=== PATIENT | female | born 1960 | race African-American/Black ===

== ENCOUNTER 2016-09-19 13:13 | Emergency (ER) | payer OTHER ==
[2016-09-19 13:32] VITALS: BP 158/91; PULSE 86; TEMP 97.4; BMI 30.8
--- NOTE | 2016-09-19 14:02 | PDOC ---
History of Present Illness - General Chief Complaint: Pain Stated Complaint: LEFT HIP PAIN Time Seen by Provider: 09/19/16 14:02 History Source: Patient Exam Limitations: No Limitations - History of Present Illness Initial Comments: 09/19/16 14:30 CHIEF COMPLAINT: Left hip pain PCP: Dr. Maria Luz Chahal (Orthopedics) Dr. Youssef (Pain Management) HISTORY OF PRESENT ILLNESS: Patient is a 55-year-old female presented to the ED via EMS with the chief complaints of left hip pain since 3 days. A/c to the patient, she started having the pain suddenly, progressively getting worse, stabbing in quality, 15/ 10 in intensity, non radiating. 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 No h/o trauma to that area. Patient reports numbness/tingling in bilateral hands since few weeks. No h/o stroke like symptoms. Mentions that patient has had chronic back pain since the age of 11 years after she was paralysed s/p mechanical fall, had paralysis for 6months which resolved. Since then she has had severe back pain and is on muscle relaxants. Patient visits Dr. Youssef for pain management, gets fentanyl patch and IM meds (unsure of the name) Denies urinary symptoms like increased frequency, urgency, hesitancy or incontinence. No h/o fever, chills, rigors, sweating, headache, abdominal pain, nausea or vomiting. Patient was scheduled for right knee arthoscopy on Sep 14 but was cancelled. Bowel habit normal. Sleep/Appetite normal. Recent Travel: None PAST MEDICAL HISTORY: Hypertension, Diabetes, Hyperlipidemia, Osteoarthritis, Left Total knee replacement (twice) PAST SURGICAL HISTORY: As mentioned above Social History: Smoking: Denies Alcohol: Denies Drugs: Denies Family History:Unknown Allergies: NKDA Past History - Past Medical History Allergies/Adverse Reactions: Allergies Allergy/AdvReac Type Severity Reaction Status Date / Time No Known Allergies Allergy Verified 09/19/16 14:39 Home Medications: Ambulatory Orders Loratadine [Claritin 5mg/5mL Liquid] 5 mg PO DAILY 02/02/13 Metformin HCl [Glucophage -] 500 mg PO BID 02/02/13 Atorvastatin Ca [Lipitor] 20 mg PO HS 05/22/13 Baclofen [Lioresal -] 10 mg PO Q8H 05/22/13 Ibuprofen/Famotidine [Duexis 800-26.6 mg Tablet] 1 each PO TID 05/22/13 Tramadol HCl 50 mg PO PRN 05/22/13 Amlodipine/Valsartan [Exforge 5-160 mg Tablet] 1 tab PO DAILY 05/30/15 Desvenlafaxine Succinate [Pristiq] 50 mg PO DAILY 05/30/15 Diphenhydramine [Benadryl Capsule -] 50 mg PO DAILY 05/30/15 Furosemide [Lasix -] 40 mg PO DAILY 05/30/15 Gabapentin [Neurontin -] 400 mg PO TID 05/30/15 Lansoprazole [Prevacid -] 0 mg PO DAILY 05/30/15 Naproxen [EC-Naprosyn] 500 mg PO BID 05/30/15 Polyethylene Glycol 3350 [Miralax 119 gm Btl -] 17 gm PO DAILY 05/30/15 Prednisone [Deltasone -] 10 mg PO DAILY 05/30/15 Tiotropium [place] [Spiriva Respimat] 4 gm IH Q4H 05/30/15 Travoprost [Travatan Z] 1 drop IO DAILY 05/30/15 Zolpidem Tartrate [Ambien] 10 mg PO DAILY 05/30/15 Ibuprofen [Motrin -] 400 mg PO TID #10 tablet 09/19/16 Asthma: Yes Cardiac Disorders: Yes (HEART MURMUR) COPD: Yes Diabetes: Yes (NIDDM) GI Disorders: Yes (CONSTIPATION) HTN: Yes Hypercholesterolemia: Yes Thyroid Disease: Yes (HYPERACTIVE A CHILD) - Surgical History Orthopedic Surgery: Yes (TKR LEFT KNEE) - Psycho/Social/Smoking Cessation Hx Anxiety: No Suicidal Ideation: No Smoking Status: Yes Smoking History: Current every day smoker Have you smoked in the past 12 months: Yes Number of Cigarettes Smoked Daily: 20 Information on smoking cessation initiated: No 'Breaking Loose' booklet given: 01/22/15 Hx Alcohol Use: No Drug/Substance Use Hx: No Substance Use Type: Cocaine Hx Substance Use Treatment: (5 YEARS AGO) Review of Systems - Review of Systems Able to Perform ROS?: Yes Comments:: 09/19/16 17:40 CONSTITUTIONAL:~ Absent: fever, chills, diaphoresis, generalized weakness, malaise, loss of appetite HEENT:~ Absent: rhinorrhea, nasal congestion, throat pain, throat swelling, difficulty swallowing, mouth swelling, ear pain, eye pain, visual Changes CARDIOVASCULAR:~ Absent: chest pain, syncope, palpitations, irregular heart rate, lightheadedness , peripheral edema RESPIRATORY:~ Absent: cough, shortness of breath, dyspnea with exertion, orthopnea, wheezing, stridor, hemoptysis GASTROINTESTINAL: Absent: abdominal pain, abdominal distension, nausea, vomiting, diarrhea, constipation, melena, hematochezia GENITOURINARY:~ Absent: dysuria, frequency, urgency, hesitancy, hematuria, flank pain, genital pain MUSCULOSKELETAL: Present: Left hip pain Absent: myalgia, arthralgia, joint swelling SKIN:~ Absent: rash, itching, pallor HEMATOLOGIC/IMMUNOLOGIC:~ Absent: easy bleeding, easy bruising, lymphadenopathy, frequent infections ENDOCRINE: Absent: unexplained weight gain, unexplained weight loss, heat intolerance, cold intolerance NEUROLOGIC:~ Absent: headache, focal weakness or paresthesias, dizziness, unsteady gait, seizure, mental status changes, bladder or bowel incontinence PSYCHIATRIC:~ Absent: anxiety, depression, suicidal or homicidal ideation, hallucinations. Is the patient limited Uzbek proficient: No *Physical Exam - Vital Signs Last Vital Signs Temp Pulse Resp BP Pulse Ox 97.4 F L 86 18 158/91 100 09/19/16 13:24 09/19/16 13:24 09/19/16 13:24 09/19/16 13:24 09/19/16 13:24 - Physical Exam Comments: 09/19/16 17:41 PE: GENERAL: Awake, alert, and fully oriented, in no acute distress HEAD: No signs of trauma EYES: PERRLA, EOMI, sclera anicteric, conjunctiva clear ENT: Auricles normal inspection, hearing grossly normal, nares patent, oropharynx clear without exudates. Moist mucosa NECK: Normal ROM, supple, no lymphadenopathy, JVD, or masses LUNGS: Breath sounds equal, clear to auscultation bilaterally. No wheezes, and no crackles.. HEART: Regular rate and rhythm, normal S1 and S2, no murmurs, rubs or gallops ABDOMEN: Soft, nontender, normoactive bowel sounds. No guarding, no rebound. No masses EXTREMITIES: Normal range of motion but pain on movement, no edema. No clubbing or cyanosis. No cords, erythema. Back: Point tenderness on the lumbar/sacral area, left buttocks and paraspinal area on palpation. NEUROLOGICAL: Cranial nerves II through XII grossly intact. Normal speech, normal gait SKIN: Warm, Dry, normal turgor, no rashes or lesions noted. Medical Decision Making - Medical Decision Making 09/19/16 13:20 Patient seen and examined at bed side. Vitals noted, unremarkable. Patient looks like she is in a lot of pain. Will order Toradol 60mg im stat and X-ray of hip/pelvis and lumbar/sacral 09/19/16 14:30 Patient reassessed. Pain is decreasing. 09/19/16 17:00 Clinical Impression: Back pain most likely musculoskeltal origin X-ray reviewed, no acute pathology Patient's pain is reduced with Toradol. She is hemodynamically stable and can be discharged. Patient has been advised to return to the Emergency Department immediately if symptoms persist or if she develops NEW symptoms and to visit her primary doctor as soon as possible. Illness, Investigation and Plan of care explained to the patient. Case seen and discussed with Dr. Laird. *DC/Admit/Observation/Transfer Diagnosis at time of Disposition: Left hip pain - Discharge Dispostion Disposition: HOME Condition at time of disposition: Guarded Admit: No - Prescriptions Prescriptions: Ibuprofen [Motrin -] 400 mg PO TID #10 tablet - Referrals Referrals: Seb Braga [Primary Care Provider] - - Patient Instructions Printed Discharge Instructions: DI for Musculoskeletal Pain Additional Instructions: Your x-ray of hip/pelvis and lumbar/sacral looks normal, no acute pathology. Your hip pain is most likely musculoskeletal origin. If you have severe pain, please take motrin. Make sure you visit your primary doctor for further evaluation. If pain persists, you may need to do an MRI of the back. Return to the emergency department immediately with ANY new, persistent or worsening symptoms.
[2016-09-19] MEDS ORDERED: KETOROLAC TROMETHAMINE 60 MG/2 ML VIAL IM ONE ×2 (14:21→14:32)
[2016-09-19] MEDS ORDERED: KETOROLAC TROMETHAMINE 30 MG/1 ML VIAL IVPUSH ONE (14:23)
--- NOTE | 2016-09-19 14:32 | PDOC ---
Attending Attestation - Resident Resident Name: Fern Lyons - ED Attending Attestation I have performed the following: I have examined & evaluated the patient, The case was reviewed & discussed with the resident, I agree w/resident's findings & plan - HPI HPI: 09/19/16 14:27 55-year-old female with a past medical history of hypertension, AODM, hyperlipidemia, and awaiting Patient has a history of left hip TKR 2, status post a fall She is also scheduled for elective right knee surgery She has chronic back pain, for many years, and is being followed by pain management She is on baclofen, tramadol, and gabapentin for her chronic back pain Patient is now complaining of 3 days of left hip pain, after turning and lifting her She states that she pulled out her left hip and left buttock, and now it hurts for 3 days She did not fall or directly strike the area She denies any fevers or chills She denies any rashes She denies any direct injury to the area She denies any numbness or tingling in her leg, or weakness in her leg - Physicial Exam PE: 09/19/16 14:30 GENERAL: The patient is awake, alert, and fully oriented, and answering questions HEAD: Normal with no signs of trauma. HEART: Regular rate and rhythm, normal S1 and S2 without murmur, rub or gallop. ABDOMEN: Soft, nontender, normoactive bowel sounds. No guarding, no rebound. No masses appreciated. EXTREMITIES: There is some tenderness on the left gluteal muscles, which is worse with musculoskeletal maneuvers There is passive full range of motion of the hip with some mild tenderness Motor strength is equal in the lower extremities bilaterally Sensation is intact in the lower extremities There is full range of motion of the right hip SKIN: Warm, Dry, - Medical Decision Making 09/19/16 17:29 Musculoskeletal pain LS-spine series as read by me-MELANIE Left hip and pelvis series as read by me-NAD Patient feeling much better after Toradol Has medications from pain management
[2016-09-19] MEDS ORDERED: KETOROLAC TROMETHAMINE 60 MG/2 ML VIAL ONE (14:34)
[2016-09-19] MEDS ORDERED: IBUPROFEN 400 MG TABLET (FP) PO ONE ×2 (17:34→17:42)
== END 2016-09-19 17:52 | disposition home or self-care (01) ==
LOC: JER 13:13
PROC: 3E0233Z Introduction of Anti-inflammatory into Muscle, Percutaneous Approach (ICD-10-PCS; principal; 2016-09-19)
DX: M25.552 Pain in left hip (principal); M54.5 Low back pain; J45.909 Unspecified asthma, uncomplicated; I10 Essential (primary) hypertension; R01.1 Cardiac murmur, unspecified; E11.9 Type 2 diabetes mellitus without complications; Z79.84 Long term (current) use of oral hypoglycemic drugs; E78.00 Pure hypercholesterolemia, unspecified; M19.90 Unspecified osteoarthritis, unspecified site; F17.210 Nicotine dependence, cigarettes, uncomplicated
CPT/HCPCS: 72100-TC; 73523-TC; 96372; 99281-25

== ENCOUNTER 2017-11-02 12:57 | Emergency (ER) | payer OTHER ==
[2017-11-02 13:02] VITALS: BP 100/55; PULSE 82; TEMP 98.1; BMI 25.8
[2017-11-02] MEDS ORDERED: ERYTHROMYCIN 0.5% OPHTHALMIC OINTMENT 3.5 GM TUBE OS ONE (14:22)
[2017-11-02] MEDS ORDERED: TETRACAINE 0.5% HCL 0.6ML DROPPER.BOTTLE OD ONE (14:23)
[2017-11-02] MEDS ORDERED: FLUORESCEIN NA 1 EA STRIP OD ONE (14:24)
--- NOTE | 2017-11-02 14:36 | PDOC ---
History of Present Illness - General Chief Complaint: Foreign Body (FB) Stated Complaint: EYE INJURY Time Seen by Provider: 11/02/17 13:47 History Source: Patient Exam Limitations: No Limitations - History of Present Illness Initial Comments: 11/02/17 14:44 yesterday was coming up stairs when felt piece of debris blow into her right eye. States used a Q-tip with water, use Vaseline, to try to remove foreign body which she felt was extracted last night but woke up this morning with injected eyes some mild swelling and some drainage. States visual acuity is normal. Suffers from glaucoma but has not seen the scrap bunch maker for over 1 year. No fever, no pain to right eye. Occurred: reports: yesterday Severity: reports: mild, moderate Pain Location: reports: face Method of Injury: Yes: unknown Associated Symptoms (Fall): denies symptoms Past History - Travel Traveled outside of the country in the last 30 days: No Close contact w/someone who was outside of country & ill: No - Past Medical History Allergies/Adverse Reactions: Allergies Allergy/AdvReac Type Severity Reaction Status Date / Time No Known Allergies Allergy Verified 11/02/17 13:02 Home Medications: Ambulatory Orders metFORMIN HCL [Glucophage -] 500 mg PO BID 02/02/13 Tramadol HCl 50 mg PO PRN 05/22/13 Amlodipine/Valsartan [Exforge 5-160 mg Tablet] 1 tab PO DAILY 05/30/15 Desvenlafaxine Succinate [Pristiq] 50 mg PO DAILY 05/30/15 Gabapentin [Neurontin -] 400 mg PO TID 05/30/15 Lansoprazole [Prevacid -] 0 mg PO DAILY 05/30/15 Naproxen [EC-Naprosyn] 500 mg PO BID 05/30/15 Tiotropium [place] [Spiriva Respimat] 4 gm IH Q4H 05/30/15 Travoprost [Travatan Z] 1 drop IO DAILY 05/30/15 Zolpidem Tartrate [Ambien] 10 mg PO DAILY 05/30/15 Erythromycin 0.5% Eye Ointment [Erythromycin 0.5% Eye Ointment -] 1 applic OD TID #1 tube 11/02/17 Asthma: Yes Cardiac Disorders: Yes (HEART MURMUR) CVA: Yes COPD: Yes Diabetes: Yes (NIDDM) GI Disorders: Yes (CONSTIPATION) HTN: Yes Hypercholesterolemia: Yes Thyroid Disease: Yes (HYPERACTIVE A CHILD) - Surgical History Orthopedic Surgery: Yes (TKR LEFT KNEE) - Immunization History Immunization Up to Date: Yes - Suicide/Smoking/Psychosocial Hx Smoking Status: Yes Smoking History: Never smoked Have you smoked in the past 12 months: Yes Number of Cigarettes Smoked Daily: 20 Information on smoking cessation initiated: No 'Breaking Loose' booklet given: 01/22/15 Hx Alcohol Use: No Drug/Substance Use Hx: No Substance Use Type: None Hx Substance Use Treatment: (5 YEARS AGO) Review of Systems - Review of Systems Able to Perform ROS?: Yes Is the patient limited Macedonian proficient: Yes Constitutional: Yes: See HPI. No: Symptoms Reported, Fever, Malaise HEENTM: Yes: Symptoms Reported, See HPI, Eye Pain, Tearing. No: Double Vision Respiratory: No: Symptoms reported Musculoskeletal: Yes: See HPI. No: Symptoms Reported All Other Systems: Reviewed and Negative *Physical Exam - Vital Signs Last Vital Signs Temp Pulse Resp BP Pulse Ox 98.1 F 82 16 100/55 100 11/02/17 12:59 11/02/17 12:59 11/02/17 12:59 11/02/17 12:59 11/02/17 12:59 - Physical Exam General Appearance: Yes: Nourished, Appropriately Dressed, Apparent Distress, Mild Distress, Moderate Distress HEENT: positive: JEFFREY, Normal ENT Inspection, TMs Normal, Pharynx Normal, Other (injercted right conjuctivae- with tearing. - Fluourosceine stain = no FB/ Abrasion/ no pickup.) Neck: positive: Supple. negative: Tender, Lymphadenopathy (R), Lymphadenopathy (L) Respiratory/Chest: positive: Lungs Clear, Normal Breath Sounds Gastrointestinal/Abdominal: positive: Normal Bowel Sounds, Soft Integumentary: positive: Normal Color, Dry, Warm Neurologic: positive: reinforcement maker II-XII NML intact, Fully Oriented, Alert, Normal Mood/ Affect, Normal Response, Motor Strength 5/5 Progress Note - Progress Note Progress Note: chemical conjuctivitis - vs corneal abrasion - will treat with erythromycin ointment - f/u this week with Dr Saxena- Optho *DC/Admit/Observation/Transfer Diagnosis at time of Disposition: Corneal abrasion, right Qualifiers: Encounter type: initial encounter Qualified Code(s): S05.01XA - Injury of conjunctiva and corneal abrasion without foreign body, right eye, initial encounter - Discharge Dispostion Disposition: HOME Condition at time of disposition: Stable Admit: No - Prescriptions Prescriptions: Erythromycin 0.5% Eye Ointment [Erythromycin 0.5% Eye Ointment -] 1 applic OD TID #1 tube - Referrals Referrals: Seb Braga [Primary Care Provider] - Emiliano Saxena MD [Staff Physician] - - Patient Instructions Printed Discharge Instructions: DI for Corneal Abrasion Additional Instructions: Rest, avoid rubbing eyes Wash hands frequently as this is very contagious Wash hands, use eye drops as directed, wash hands after use Do not share eyedrops with other person to may become infected as this will infect them erythromycin ointment to right eye 3 times a day to affected eye 3 times a day for 5 days Avoid contact with others until redness and discharge is gone from eyes. Followup with ophthalmology or private physician this week - Post Discharge Activity Forms/Work/School Notes: Back to Work
== END 2017-11-02 14:58 | disposition home or self-care (01) ==
LOC: JERFT 12:57
DX: S05.01XA Injury of conjunctiva and corneal abrasion without foreign body, right eye, initial encounter (principal); X58.XXXA Exposure to other specified factors, initial encounter; Y93.89 Activity, other specified; Y92.9 Unspecified place or not applicable; R01.1 Cardiac murmur, unspecified; J44.9 Chronic obstructive pulmonary disease, unspecified; I10 Essential (primary) hypertension; E78.00 Pure hypercholesterolemia, unspecified; Z87.891 Personal history of nicotine dependence
CPT/HCPCS: 99281-25

== ENCOUNTER 2019-09-14 07:43 | Day surgery (SDC) | payer OTHER ==
[2019-08-30 16:04] VITALS: BMI 30.1
[2019-09-14] MEDS ORDERED: MIDAZOLAM HCL 2 MG/2 ML SINGLE DOSE VIAL ONE (11:36)
[2019-09-14] MEDS ORDERED: PROPOFOL 20 ML ONE (11:36)
[2019-09-14] MEDS ORDERED: LIDOCAINE HCL 1%, 10 MG/ML (50 mL VIAL) IJ ONE (11:44)
[2019-09-14] MEDS ORDERED: IOHEXOL 180 MG/1 ML ML IJ ONE (11:44)
[2019-09-14] MEDS ORDERED: BUPIVACAINE HCL/PF 0.25% (2.5MG/ML) 10 ML VIAL IJ ONE (11:44)
[2019-09-14] MEDS ORDERED: BUPIVACAINE HCL/PF 0.5% (5MG/ML) 10 ML VIAL IJ ONE (11:45)
[2019-09-14] MEDS ORDERED: BETAMET ACET/BETAMET NA PH 30 MG/5 ML VIAL IJ ONE (11:45)
[2019-09-14] MEDS ORDERED: oxyCODONE HCL 5 MG TABLET PO PRN ×2 (12:34)
[2019-09-14] MEDS ORDERED: ONDANSETRON 4 MG/2 ML VIAL IVPUSH PRN (12:34)
[2019-09-14] MEDS ORDERED: LACTATED RINGERS SOLUTION 1,000 ML IV SCH (12:45)
[2019-09-14 12:52] VITALS: TEMP 97.6
[2019-09-14 13:22] VITALS: BP 141/92; PULSE 80
--- NOTE | 2019-09-16 21:15 | PROC ---
Procedure Note Procedure: Date of service: 09/14/2019 Preoperative Diagnosis: Low back pain and lumbar radiculopathy on Left Postoperative Diagnosis: Same Procedure Performed: Lumbar Epidural Steroid Injection (LESI) on Left L4-5 with dye under Fluoroscopy Anesthesia: Local / MAC Anesthesiologist: Procedure: I discussed with the patient in detail about the risks, benefits, and alternatives to treatment not only limited to infection, headache, numbness, weakness, and injury to nerves, blood vessels and muscles. The patient understood, agreed and signed the written consent. The patient was placed in the prone position with the head, abdomen and legs supported with the pillows. The lumbosacral area was prepped and draped with Betadine times three in a sterile fashion. Lumbar vertebrae were identified under the C-arm. At L4-5 level on the Left side, 3 ml of 1 % Lidocaine was infiltrated into the skin and subcutaneous tissue. A 3 inch, #20 gauge Tuohy needle was advanced to the epidural space with loss of resistance technique under fluoroscopic guidance. Aspiration was negative for cerebrospinal fluid and blood. 2ml of Omnipaque (radio-opaque dye) was injected to confirm the tip of the needle into epidural space and spread of dye. There was no CSF or vascular spread. The spread of dye was noted cranially and caudally on epidurogram. Aspiration was done again which was negative. A solution of 2.5 ml of Celestone, 2.5 ml of 0.25% Marcaine and a total of 5 ml was injected slowly. While Tuohy needle was withdrawn 2.0 ml of 1 % Lidocaine was infiltrated. Bleeding was checked. Betadine was wiped off. A sterile bandage was placed. The patient tolerated the procedure well. There were no immediate complications. The patient was transferred to the recovery room. The patient was observed for some time and discharged as per ASU criteria. The patient was told to apply ice at the injection site. Follow up appointment was given and also call my office at [phone]. If there is any problem, call my office or report to Emergency Room. Vj Madrid M.D.
== END 2019-09-14 14:40 | disposition home or self-care (01) ==
LOC: JASU-SURG 07:43
PROVIDERS: ATTEND Physical Medicine & Rehabilitation
PROC: 3E0R3BZ Introduction of Anesthetic Agent into Spinal Canal, Percutaneous Approach (ICD-10-PCS; 2019-09-14)
PROC: B01BYZZ Fluoroscopy of Spinal Cord using Other Contrast (ICD-10-PCS; 2019-09-14)
PROC: 3E0R33Z Introduction of Anti-inflammatory into Spinal Canal, Percutaneous Approach (ICD-10-PCS; principal; 2019-09-14 09:30)
DX: M54.16 Radiculopathy, lumbar region (principal); M54.5 Low back pain
CPT/HCPCS: 76000-TC-FY; 82962; 94760

== ENCOUNTER 2024-09-15 08:58 | Inpatient (IN) | payer OTHER ==
[2024-09-15 09:23] VITALS: BMI 27.9
[2024-09-15] MEDS ORDERED: NALOXONE (NARCAN) HCL 4 MG/0.1 ML SPRAY NS PRN (09:56)
[2024-09-15] MEDS ORDERED: POLYETHYLENE GLYCOL (HEALTHYLAX) 3350 17 GM PACKET PO PRN (09:56)
[2024-09-15] MEDS ORDERED: BENZONATATE 200 MG CAPSULE PO PRN (09:56)
[2024-09-15] MEDS ORDERED: guaiFENesin 600 MG TABLET.ER (FP) PO PRN (09:56)
[2024-09-15] MEDS ORDERED: LOPERAMIDE HCL 2 MG CAPSULE PO PRN (09:56)
[2024-09-15] MEDS ORDERED: PRENATAL VITAMINS W/ FOLIC ACID TABLET (FP) PO ONE (12:07)
[2024-09-15] MEDS: PRENATAL VITAMINS W/ FOLIC ACID TABLET (FP) PO SCH (12:09)
[2024-09-15] MEDS: GABAPENTIN 400 MG CAPSULE PO SCH (13:14)
[2024-09-15] MEDS: TUBERCULIN PPD 5 TU/0.1ML SYRINGE (IN PATIENT USE ONLY) ID ONE (13:17)
[2024-09-15] MEDS: metFORMIN HCL 500 MG TABLET (FP) PO SCH (22:07)
[2024-09-15] MEDS: MELATONIN 5 MG TABLETS PO SCH (22:07)
[2024-09-15] MEDS: THIAMINE 100 MG TABLET PO SCH (22:07)
[2024-09-16] MEDS: LOSARTAN POTASSIUM 50 MG TABLET PO SCH (09:46)
[2024-09-16] MEDS: FLUTICASONE/UMECLIDIN/VILANTER(100-62.5-25 TRELEGY ELLIPTA) INAHLER IH SCH (09:46)
[2024-09-16 10:31] LABS: HEMATOCRIT 42.8 % (32.4-45.2); HEMOGLOBIN 13.8 GM/dL (10.7-15.3); MCH 29.9 pg (25.7-33.7); MCHC 32.3 g/dl (32.0-36.0); MEAN CELL VOLUME 92.5 fl (80-96); MEAN PLT VOLUME 9.2 fl (7.5-11.1); PLATELET COUNT 268 10^3/uL (134-434); RBC 4.62 M/mm3 (3.60-5.2); RDW 14.4 % (11.6-15.6); WHITE BLOOD COUNT 5.3 K/mm3 (4.0-10.0)
[2024-09-16 11:02] LABS: SYPHILIS W/ RPR CONF NON-REACTIVE (NONREACTIVE)
[2024-09-16 11:17] LABS: CHLORIDE 107 mmol/L (98-107); POTASSIUM 3.9 mmol/L (3.5-5.1); SODIUM 142 mmol/L (136-145)
[2024-09-16 11:19] LABS: CALCIUM 9.2 mg/dL (8.5-10.1)
[2024-09-16 11:21] LABS: ALBUMIN 3.4 g/dl (3.4-5.0); ANION GAP 7 mmol/L (4-13); BLOOD UREA NITROGEN 11.5 mg/dL (7-18); CO2 28 mmol/L (21-32); GLUCOSE,RANDOM 126 mg/dL (74-106)
[2024-09-16 11:23] LABS: CREATININE 0.9 mg/dL (0.55-1.3); SGPT/ALT 17 U/L (13-61)
[2024-09-16 11:24] LABS: BILIRUBIN,TOTAL 0.2 mg/dL (0.2-1)
[2024-09-16 11:28] LABS: ALK PHOS 43 U/L (45-117); SGOT/AST 15 U/L (15-37)
[2024-09-16 11:32] LABS: HCV DIAGNOSTIC IN-HOUSE W/RFLX NON-REACTIVE (NONREACTIVE)
[2024-09-16] MEDS: MAG HYDROX/AL HYDROX/SIMETH 30 ML UNIT-DOSE CUP PO PRN (16:40)
[2024-09-16] MEDS: MAGNESIUM HYDROX 2400MG/30ML ORAL SUSPENSION 30 ML CUP PO PRN (18:38)
[2024-09-17] MEDS: ALBUTEROL SO4 HFA INHALER IH PRN (08:13)
[2024-09-17] MEDS: NICOTINE POLACRILEX 2 MG GUM BUC PRN (11:20)
[2024-09-17 15:00] LABS: PH,URINE 5.5 (5.0-8.0); URINE APPEARANCE CLEAR; URINE BILIRUBIN NEGATIVE (NEGATIVE); URINE COLOR YELLOW; URINE GLUCOSE (UA) NEGATIVE (NEGATIVE); URINE KETONE NEGATIVE (NEGATIVE); URINE LEUK ESTERASE NEGATIVE (NEGATIVE); URINE NITRITE NEGATIVE (NEGATIVE); URINE PROTEIN NEGATIVE (NEGATIVE); URINE UROBILINOGEN 0.2 mg/dL (0.2-1.0)
[2024-09-17] MEDS: metFORMIN HCL 500 MG TABLET (FP) PO SCH (17:08)
[2024-09-18] MEDS ORDERED: PATIENT'S OWN MEDICATION (NON-FORMULARY) (Linaclotide [Linzess] 290 MCG Capsule) PO PRN (13:30)
[2024-09-18] MEDS: diazePAM 5 MG TABLET PO ONE (19:02)
[2024-09-18] MEDS: PRAMIPEXOLE DIHYDROCHLORIDE 0.125 MG TABLET PO SCH (21:37)
[2024-09-19] MEDS: IBUPROFEN 600 MG TABLET (FP) PO PRN (08:03)
[2024-09-19] MEDS: ACETAMINOPHEN 325 MG TABLET (FP) PO PRN (12:03)
[2024-09-19] MEDS: BENZOCAINE/MENTHOL (CHLORASEPTIC ) LOZENGE MM PRN (12:04)
[2024-09-19] MEDS: hydrOXYzine PAMOATE 50 MG CAPSULE (FP) PO ONE (22:15)
[2024-09-20] MEDS ORDERED: BENZONATATE 200 MG CAPSULE PO PRN (09:40)
[2024-09-20] MEDS ORDERED: ALBUTEROL SO4 2.5/IPRATROPIUM 0.5 INH SOL 3 ML VIAL.NEB. NEB PRN (09:40)
[2024-09-20] MEDS ORDERED: CycloBENZAprine HCL 10 MG TABLET (FP) PO SCH (10:00)
[2024-09-20] MEDS: PATIENT'S OWN MEDICATION (NON-FORMULARY) (Linaclotide 145 MCG Capsule) PO SCH (10:21)
[2024-09-20] MEDS: guaiFENesin 600 MG TABLET.ER (FP) PO PRN (10:29)
[2024-09-20] MEDS: BACLOFEN 10 MG TABLET (FP) PO SCH (10:29)
[2024-09-20] MEDS: hydrOXYzine PAMOATE 50 MG CAPSULE (FP) PO PRN (16:27)
[2024-09-21] MEDS: OXYMETAZOLINE 0.05% NASAL SOLUTION 15 ML BOTTLE NS PRN (08:41)
[2024-09-22] MEDS: SUVOREXANT 10 MG TABLET PO PRN (21:27)
[2024-09-23] MEDS: guaiFENesin 600 MG TABLET.ER (FP) PO PRN (07:01)
[2024-09-25 17:16] LABS: URINE APPEARANCE CLEAR; URINE BILIRUBIN NEGATIVE (NEGATIVE); URINE COLOR YELLOW; URINE GLUCOSE (UA) NEGATIVE (NEGATIVE); URINE KETONE NEGATIVE (NEGATIVE); URINE LEUK ESTERASE NEGATIVE (NEGATIVE); URINE NITRITE NEGATIVE (NEGATIVE); URINE PROTEIN NEGATIVE (NEGATIVE); URINE UROBILINOGEN 0.2 mg/dL (0.2-1.0)
[2024-09-28] MEDS: NAPHAZOLINE/PHENIRAMINE OPHTHALMIC 15 ML BOTTLE OU PRN (12:43)
[2024-09-28] MEDS: SIMETHICONE 80 MG TAB.CHEW (FP) PO PRN (21:24)
[2024-09-30] MEDS: LIDOCAINE 4% PATCH TP PRN (19:38)
[2024-09-30] MEDS: LIDOCAINE PATCH REMOVAL MC SCH (21:14)
[2024-10-01] MEDS: NICOTINE POLACRILEX 2 MG LOZENGE BC PRN (10:23)
[2024-10-02] MEDS: IBUPROFEN 400 MG TABLET (FP) PO PRN (01:21)
[2024-10-02] MEDS: NICOTINE 14 MG/24 HOURS TOPICAL PATCH TD SCH (10:01)
[2024-10-10 21:51] VITALS: RESP 18
[2024-10-12 07:08] VITALS: TEMP 96.8
[2024-10-12 09:29] VITALS: BP 105/64
[2024-10-12 12:59] VITALS: PULSE 90
== END 2024-10-12 10:08 | disposition home or self-care (01) | DRG 772 ==
LOC: YASAS 08:58 → Y3NR 12:04 → Y5N 09-17 11:50
PROVIDERS: ADMIT Psychiatry & Neurology Pain Medicine; ATTEND Psychiatry & Neurology Pain Medicine
PROC: HZ42ZZZ Group Counseling for Substance Abuse Treatment, Cognitive-Behavioral (ICD-10-PCS; principal; 2024-09-15)
DX: F14.20 Cocaine dependence, uncomplicated (principal); F12.20 Cannabis dependence, uncomplicated; F17.210 Nicotine dependence, cigarettes, uncomplicated; F19.282 Other psychoactive substance dependence with psychoactive substance-induced sleep disorder; F19.280 Other psychoactive substance dependence with psychoactive substance-induced anxiety disorder; F33.1 Major depressive disorder, recurrent, moderate; F43.10 Post-traumatic stress disorder, unspecified; U07.1 COVID-19; G47.33 Obstructive sleep apnea (adult) (pediatric); I10 Essential (primary) hypertension; J44.9 Chronic obstructive pulmonary disease, unspecified; E78.5 Hyperlipidemia, unspecified; E11.9 Type 2 diabetes mellitus without complications; Z79.84 Long term (current) use of oral hypoglycemic drugs; Z96.653 Presence of artificial knee joint, bilateral; R10.13 Epigastric pain
CPT/HCPCS: 0241U-QW; 36415; 80053; 80305; 80307; 81003; 82962; 85027; 86780; 86803; 87086; 87811; 93005; 93010; J0475